=== PATIENT | female | born 1990 | race African-American/Black ===

== ENCOUNTER 2017-12-04 01:38 | Emergency (ER) | payer SELFPAY ==
[~2017-12-04] VITALS: Ht 157.5 cm; Wt 47.6 kg
[2017-12-04] MEDS ORDERED: Morphine Sulfate 4mg/ml Inj IVP ONE (02:00)
[2017-12-04] MEDS ORDERED: Ipratropium 0.02% Inh Soln 2.5ml UD HHN ONE (02:00)
[2017-12-04] MEDS ORDERED: NS 1000ml 1,400 ML IVLG ONE (02:00)
[2017-12-04] MEDS ORDERED: Albuterol ud Inhalation HHN ONE (02:00)
--- NOTE | 2017-12-04 02:01 | Emergency Room Report ---
History of Present Illness General Chief Complaint: Flu Like Symptoms Source: Patient Present Illness HPI Patient presents with coughing congestion and fever. Onset for 2 weeks now. Getting worse. Coughing to the point she started up. Tonight she noticed some specks of blood in it. Also with fever chills in the last few days. Coughing is productive of yellow phlegm. No abdominal pain. No diarrhea. No sick contact. Still able to smoke but much less. Allergies: Coded Allergies: No Known Allergies (Unverified , 12/04/17) Patient History Past Medical History: see triage record, old chart reviewed Past Surgical History: none Pertinent Family History: none Social History: Reports: smoking Last Menstrual Period: 11/28/2017 Now: No Immunizations: other Reviewed Nursing Documentation: PMH: Agreed; PSxH: Agreed Nursing Documentation-PMH Past Medical History: No History, Except For Hx Asthma: Yes - childhood asthma Review of Systems Constitutional: Reports: fever, weakness Eye: Denies: eye pain, blurred vision ENT: Denies: ear pain, nose congestion, throat swelling Respiratory: Reports: cough, shortness of breath, sputum Cardiovascular: Denies: chest pain, palpitations Gastrointestinal: Denies: abdominal pain, diarrhea, nausea, vomiting Musculoskeletal: Denies: back pain, joint pain Skin: Denies: rash Neurological: Denies: headache, numbness Endocrine: Denies: increased thirst, increased urine Hematologic/Lymphatic: Denies: easy bruising All Other Systems: negative except mentioned in HPI Physical Exam Vital Signs Date Time Temp Pulse Resp B/P (MAP) Pulse Ox O2 Delivery O2 Flow Rate FiO2 12/04/17 01:41 100.0 106 21 103/58 96 Room Air 100.0 vitals with fever Sp02 EP Interpretation: reviewed, normal General Appearance: well appearing, no apparent distress, alert Head: normocephalic, atraumatic Eyes: bilateral eye PERRL, bilateral eye EOMI ENT: hearing grossly normal, normal pharynx Neck: full range of motion, supple, no meningismus Respiratory: chest non-tender, normal breath sounds, other - and coughing fits with inspiration Cardiovascular #1: regular rate, rhythm, no murmur Gastrointestinal: normal bowel sounds, non tender, no mass, no organomegaly, no bruit, non-distended Musculoskeletal: back normal, gait/station normal, normal range of motion Psychiatric: mood/affect normal Skin: warm/dry Medical Decision Making Diagnostic Impression: Primary Impression: Influenza-like symptoms Additional Impressions: Asthma exacerbation Qualified Codes: J45.901 - Unspecified asthma with (acute) exacerbation SIRS (systemic inflammatory response syndrome) Atypical pneumonia ER Course Patient presents with influenza-like illness with coughing and bronchospasm. Coughing resolved with nebulizer treatment. Steroids given here. She does have a lactic acidosis. I suspect this is from his systemic inflammatory response syndrome. Her symptoms of ongoing for 2 weeks. Therefore I will go ahead and place on antibiotics for possible atypical pneumonia. No evidence of ACS, PE, dissection to name a few. Since patient felt much better, she wants to go home. We'll discharge home. Lab Results Impression labs with elevated lactic acid Rhythm Strip Diag. Results Rhythm Strip Time: 05:17 EP Interpretation: yes Rate: 110 Rhythm: NSR, no PVC's, no ectopy Last Vital Signs Date Time Temp Pulse Resp B/P (MAP) Pulse Ox O2 Delivery O2 Flow Rate FiO2 12/04/17 01:41 100.0 106 21 103/58 96 Room Air 100.0 Status: improved Disposition: HOME, SELF-CARE Condition: Stable Scripts Azithromycin* (ZITHROMAX*) 250 Mg Tablet 250 MG ORAL DAILY, #6 TAB 0 Refills Take two tables once daily for 1 day, then one tablet once daily for 4 days. Prov: ANNA ORNELAS M.D. 12/04/17 Prednisone* (PREDNISONE*) 20 Mg Tablet 60 MG ORAL DAILY, #15 TAB Prov: ANNA ORNELAS M.D. 12/04/17 Albuterol Sulfate* (ALBUTEROL SULFATE MDI*) 8.5 Gm Hfa.aer.ad 2 PUFF INH Q4H PRN for cough/wheezing, #1 EA 0 Refills Prov: ANNA ORNELAS M.D. 12/04/17 Referrals: NOT CHOSEN IPA/,REFERRING (PCP) Additional Instructions: Follow up with your DrAnthony in 2-3 days. Return if symptom worsen. ANNA ORNELAS M.D. Dec 04, 2017 02:01
[2017-12-04 02:35] LABS: ANION GAP 12 mmol/L (5-15); BLOOD UREA NITROGEN 10 mg/dL (7-18); CALCIUM 9.3 MG/DL (8.5-10.1); CARBON DIOXIDE 26 MMOL/L (21-32); CHLORIDE 103 MMOL/L (98-107); CREATININE 0.9 MG/DL (0.55-1.30); POTASSIUM 3.7 MMOL/L (3.5-5.1); SODIUM 140 MMOL/L (136-145)
[2017-12-04 02:39] LABS: ALANINE AMINOTRANSFERASE 23 U/L (12-78); ALBUMIN 4.5 G/DL (3.4-5.0); ALBUMIN/GLOBULIN RATIO 1.1 (1.0-2.7); ALKALINE PHOSPHATASE 51 U/L (46-116); ASPARTATE AMINO TRANSFERASE 19 U/L (15-37); BILIRUBIN,TOTAL 0.3 MG/DL (0.2-1.0)
[2017-12-04 02:40] LABS: BASOPHILS % (AUTO) 0.9 % (0.0-2.0); EOSINOPHILS % (AUTO) 0.5 % (0.0-3.0); HEMOGLOBIN 9.8 G/DL (12.0-16.0); LYMPHOCYTES % (AUTO) 11.4 % (20.0-45.0); MEAN CORPUSCULAR VOLUME 68 FL (80-99); MONOCYTES % (AUTO) 8.4 % (1.0-10.0); NEUTROPHILS % (AUTO) 78.9 % (45.0-75.0); PLATELET COUNT 353 K/UL (150-450); RED BLOOD COUNT 4.72 M/UL (4.20-5.40); RED CELL DISTRIBUTION WIDTH 14.6 % (11.6-14.8); WHITE BLOOD COUNT 10.8 K/UL (4.8-10.8)
[2017-12-04 02:45] LABS: APPEARANCE,URINE CLEAR; BILIRUBIN, URINE NEGATIVE (NEGATIVE); COLOR,URINE PALE YELLOW; GLUCOSE, URINE (UA) NEGATIVE (NEGATIVE); KETONES,URINE NEGATIVE (NEGATIVE); LEUKOCYTE ESTERASE ,URINE 1+ (NEGATIVE); NITRITE,URINE NEGATIVE (NEGATIVE); PH,URINE 6 (4.5-8.0); PROTEIN,URINE NEGATIVE (NEGATIVE); UROBILINOGEN,URINE 1 MG/DL (0.0-1.0)
[2017-12-04] MEDS ORDERED: Isovue-370 150ml vial INJ PRN (03:00)
[2017-12-04] MEDS ORDERED: Solu-MEDROL 125mg Inj IVP ONE (03:00)
[2017-12-04] MEDS ORDERED: Acetaminophen 500mg (ES) tab ORAL ONE (05:15)
[2017-12-04] MEDS ORDERED: cefTRIAXone 1 GM in NS 55 ML IVPB ONE (05:15)
[2017-12-04] MEDS ORDERED: PREDNISONE20 MG ORAL (05:18)
[2017-12-04] MEDS ORDERED: ZITHROMAX250 MG ORAL (05:18)
[2017-12-04] MEDS ORDERED: ALBUTEROL SULF8.5 GM INH (05:18)
[2017-12-04 06:54] VITALS: BP 122/89
--- NOTE | 2017-12-04 08:51 | Diagnostic Imaging Report ---
ndication: Shortness of breath Technique: IV administration nonionic contrast. Spiral acquisitions obtained from the lung bases to the lung apices. Multiplanar and 3-D reconstructions were generated. Total dose length product 504.18 mGycm. CTDIvol(s) 16.23 mGy. Dose reduction achieved using automated exposure control Comparison: none Findings: No intraluminal filling defects to suggest acute pulmonary embolus demonstrated. No pulmonary artery dilatation or right ventricular dilatation demonstrated. No evidence of thoracic aortic aneurysm or dissection. The lungs are clear. No infiltrates, effusions, masses, or nodules are demonstrated. The heart size is normal. No pericardial effusion. No mediastinal or hilar mass or adenopathy. The included portions of the thyroid are unremarkable. No axillary or chest wall mass or adenopathy demonstrated. The included upper abdominal anatomy is unremarkable Impression: Negative This agrees with the preliminary interpretation provided overnight by [facility] teleradiology service. The CT scanner at [facility] is accredited by the [employer] and the scans are performed using protocols designed to limit radiation exposure to as low as reasonably achievable to attain images of sufficient resolution adequate for diagnostic evaluation.
--- NOTE | 2017-12-04 10:57 | Diagnostic Imaging Report ---
Indication: Shortness of breath Technique: One view of the chest Comparison: none Findings: Lungs and pleural spaces are clear. Heart size is normal Impression: No acute process
== END 2017-12-04 07:05 | disposition home or self-care (01) ==
LOC: EMR 01:56
DX: J18.9 Pneumonia, unspecified organism (principal); J45.901 Unspecified asthma with (acute) exacerbation; R65.10 Systemic inflammatory response syndrome (SIRS) of non-infectious origin without acute organ dysfunction; F17.200 Nicotine dependence, unspecified, uncomplicated
CPT/HCPCS: 36415; 71045; 71275; 80053; 81003; 81025; 83605; 85025; 85379; 87040; 94640; 96374; 96375; 99284; J0696; J2270; J2405; J2930; Q9967

== ENCOUNTER 2019-08-05 19:29 | Emergency (ER) | payer OTHER ==
[~2019-08-05] VITALS: Ht 157.5 cm; Wt 47.6 kg
[~2019-08-05 19:29] MED LIST: ALBUTEROL SULF8.5 GM INH; PREDNISONE20 MG ORAL; VIBRAMYCIN100 MG ORAL; ZITHROMAX250 MG ORAL
[2019-08-05 19:35] VITALS: BP 102/61
--- NOTE | 2019-08-05 19:35 | NUR ---
ED Nurse Note: Pt walked into ED for c/o generalized body pain and n/v onset four days ago. Pt is aaox4, no cardiac or respiratory distress noted.
[2019-08-05] MEDS: Albuterol/Ipratropium 3ml neb HHN SCH ×3 (19:54→20:05)
[2019-08-05 20:28] LABS: APPEARANCE,URINE SLIGHTLY CLOUDY; BILIRUBIN, URINE NEGATIVE (NEGATIVE); GLUCOSE, URINE (UA) NEGATIVE (NEGATIVE); KETONES,URINE 2+ (NEGATIVE); LEUKOCYTE ESTERASE ,URINE 1+ (NEGATIVE); NITRITE,URINE NEGATIVE (NEGATIVE); PH,URINE 5 (4.5-8.0); PROTEIN,URINE 2+ (NEGATIVE); UROBILINOGEN,URINE 4 MG/DL (0.0-1.0)
[2019-08-05 20:31] LABS: BASOPHILS % (AUTO) 1.4 % (0.0-2.0); COLOR,URINE YELLOW; EOSINOPHILS % (AUTO) 0.4 % (0.0-3.0); HEMATOCRIT 38.2 % (37.0-47.0); HEMOGLOBIN 12.2 G/DL (12.0-16.0); LYMPHOCYTES % (AUTO) 31.1 % (20.0-45.0); MEAN CORPUSCULAR VOLUME 85 FL (80-99); MONOCYTES % (AUTO) 9.6 % (1.0-10.0); NEUTROPHILS % (AUTO) 57.5 % (45.0-75.0); PLATELET COUNT 178 K/UL (150-450); RED BLOOD COUNT 4.52 M/UL (4.20-5.40); RED CELL DISTRIBUTION WIDTH 14.4 % (11.6-14.8); WHITE BLOOD COUNT 4.2 K/UL (4.8-10.8)
[2019-08-05 20:43] LABS: ANION GAP 10 mmol/L (5-15); BLOOD UREA NITROGEN 13 mg/dL (7-18); CALCIUM 8.6 MG/DL (8.5-10.1); CARBON DIOXIDE 28 MMOL/L (21-32); CHLORIDE 103 MMOL/L (98-107); CREATININE 0.8 MG/DL (0.55-1.30); POTASSIUM 4.4 MMOL/L (3.5-5.1); SODIUM 141 MMOL/L (136-145)
[2019-08-05 20:48] LABS: ALANINE AMINOTRANSFERASE 10 U/L (12-78); ALBUMIN 3.8 G/DL (3.4-5.0); ALBUMIN/GLOBULIN RATIO 1.1 (1.0-2.7); ALKALINE PHOSPHATASE 32 U/L (46-116); ASPARTATE AMINO TRANSFERASE 27 U/L (15-37); BILIRUBIN,TOTAL 0.5 MG/DL (0.2-1.0)
--- NOTE | 2019-08-05 20:59 | Emergency Room Report ---
History of Present Illness General Chief Complaint: Flu Like Symptoms Source: Patient Present Illness HPI 28-year-old female with no significant past medical history who smokes cigarettes on daily basis as well as occasional use of marijuana here complaining of 4 days of generalized body ache, and 2 days of few bouts of nonbloody emesis, and nonbloody diarrhea. Denies chest pain palpitation however complains of 2 days of cough and congestion reports that she has history of asthma and ran out of her inhaler. Reports that she has not smoked any cigarettes nor use any marijuana in the past few days. Denies any recent travel, urinary frequency and urgency, . Patient was last seen at [facility] and was diagnosed with PID. Denies any vaginal discharge. Denies having any new sexual partner. Allergies: Coded Allergies: No Known Allergies (Unverified , 12/04/17) Patient History Past Medical History: see triage record Past Surgical History: none Pertinent Family History: none Social History: Reports: smoking, drug use - marijuana Last Menstrual Period: n/a Now: No Immunizations: UTD Reviewed Nursing Documentation: PMH: Agreed; PSxH: Agreed Nursing Documentation-PMH Past Medical History: No History, Except For Hx Cardiac Problems: No Hx Asthma: Yes Hx Neurological Problems: No Review of Systems All Other Systems: negative except mentioned in HPI Physical Exam Vital Signs Date Time Temp Pulse Resp B/P (MAP) Pulse Ox O2 Delivery O2 Flow Rate FiO2 08/05/19 19:31 98.6 95 18 102/61 (75) 93 Room Air 08/05/19 19:59 21 Sp02 EP Interpretation: reviewed, normal General Appearance: no apparent distress, alert, GCS 15, non-toxic Head: normocephalic, atraumatic Eyes: bilateral eye normal inspection, bilateral eye PERRL ENT: hearing grossly normal, normal pharynx, no angioedema, normal voice Neck: full range of motion, supple, no meningismus, no bony tend, supple/symm/ no masses Respiratory: chest non-tender, lungs clear, normal breath sounds, no rhonchi, no retraction, no accessory muscle use, no wheezing, speaking full sentences Cardiovascular #1: regular rate, rhythm, no edema, no murmur, normal capillary refill Gastrointestinal: non tender, soft, no mass, no organomegaly, no peritonitis, no bruit, non-distended, no guarding, no hernia Rectal: deferred Genitourinary: no CVA tenderness Musculoskeletal: back normal, digits/nails normal, no calf tenderness Neurologic: alert, motor strength/tone normal, oriented x3, sensory intact, responsive, speech normal Psychiatric: judgement/insight normal, memory normal, mood/affect normal, no suicidal/homicidal ideation Skin: no rash, palpation normal, normal color Lymphatic: no adenopathy Medical Decision Making PA Attestation All my diagnosis and treatment plans were reviewed ad discussed with my supervising physician Dr. Hallman Diagnostic Impression: Primary Impression: URI (upper respiratory infection) Additional Impressions: UTI (urinary tract infection) Nausea & vomiting ER Course 28-year-old female with no significant past medical history who smokes cigarettes on daily basis as well as occasional use of marijuana here complaining of 4 days of generalized body ache, and 2 days of few bouts of nonbloody emesis, and nonbloody diarrhea. Denies chest pain palpitation however complains of 2 days of cough and congestion reports that she has history of asthma and ran out of her inhaler. Reports that she has not smoked any cigarettes nor use any marijuana in the past few days. Denies any recent travel, urinary frequency and urgency, . Patient was last seen at [facility] and was diagnosed with PID. Denies any vaginal discharge. Denies having any new sexual partner. Ddx considered but are not limited to: strep pharyngitis, URI, tonsillitis, peritonsillar abscess, influenza Vital signs: are WNL, pt. is afebrile H&PE are most consistent with: URI, incidental finding of UTI, nausea vomiting most likely secondary to flulike symptoms however too late to start Tamiflu ORDERS: CBC, CMP, UA, urine test, tox screen, chest x-ray, albuterol, guaifenesin, Zofran, dicyclomine, Macrobid ED INTERVENTIONS: NS bolus, Zofran, Pepcid, 3 treatments of albuterol ipratropium nebulizer per patient request DISCHARGE: At this time pt. is stable for d/c to home. Will provide printed patient care instructions, and any necessary prescriptions. Care plan and follow up instructions have been discussed with the patient prior to discharge. Patient take medication as directed, follow-up with her primary care provider , avoid smoking, increase oral hydration, at this time I do not find the need to further test for possible PID as patient is asymptomatic and does not have any abdominal pain as well as normal white count. If worsening symptoms return to the emergency room. Advised patient to keep a brat diet and increase oral hydration especially electrolyte water. Chest X-Ray Diagnostic Results Chest X-Ray Diagnostic Results : Chest X-Ray Ordered: Yes # of Views/Limited/Complete: 1 View Indication: Shortness of Breath EP Interpretation: Yes PA Xray: Interpretation reviewed, by supervising MD, and agrees with findings. Interpretation: no consolidation, no effusion, no pneumothorax Impression: No acute disease Electronically Signed by: Orville Scales PA-C Last Vital Signs Date Time Temp Pulse Resp B/P (MAP) Pulse Ox O2 Delivery O2 Flow Rate FiO2 08/05/19 20:03 81 18 100 Room Air 21 78 18 100 08/05/19 19:31 98.6 102/61 (75) Disposition: HOME, SELF-CARE Condition: Stable Scripts Albuterol Sulfate (VENTOLIN HFA) 18 Gm Hfa.aer.ad 2 PUFFS INH EVERY 6 HOURS, #18 GM 0 Refills Prov: LoydamogtammymiCharissaal PA 08/05/19 Guaifenesin* (GUAIFENESIN*) 100 Mg/5 Ml Liquid 5 ML ORAL Q6H, #120 ML 0 Refills Prov: LoydamogkatlynNahal PA 08/05/19 Dicyclomine Hcl* (DICYCLOMINE HCL*) 10 Mg Capsule 10 MG ORAL TID, #10 CAP Prov: Charissa Gilbertal PA 08/05/19 Ondansetron (Zofran) 4 Mg Tablet 4 MG ORAL Q6H PRN for Nausea & Vomiting, #14 TAB Prov: LoydamogCharissa pottsal PA 08/05/19 Nitrofurantoin Monohyd/M-Cryst* (MACROBID 100 MG*) 100 Mg Capsule 100 MG ORAL EVERY 12 HOURS for 7 Days, #14 CAP Prov: LoydamoghaelenaNahal PA 08/05/19 Referrals: NON PHYSICIAN (PCP) Patient Instructions: Nausea and Vomiting, Adult, [id number], Upper Respiratory Infection, Adult, [id number], Urinary Tract Infection, Easy-to- Read Additional Instructions: Take medication as directed, follow-up with primary care provider, increase oral hydration, keep a brat diet, if worsening symptoms return to the emergency room Orville Gilbert Aug 05, 2019 20:59
[2019-08-05] MEDS ORDERED: NITROFURANTOIN100 M2 ORAL (21:00)
[2019-08-05] MEDS ORDERED: ZOFRAN4 M1 ORAL (21:00)
[2019-08-05] MEDS ORDERED: VENTOLIN HFA18 GM INH (21:01)
[2019-08-05] MEDS ORDERED: DICYCLOMINE HCL10 MG ORAL (21:01)
[2019-08-05] MEDS ORDERED: GUAIFENESI100 MG/5 M ORAL (21:01)
[2019-08-05 21:30] VITALS: BP 105/65
--- NOTE | 2019-08-05 21:30 | NUR ---
ER DISCHARGE NOTE: Patient is cleared to be discharged per ERMD, pt is aox4, on room air, with stable vital signs. pt was given dc and prescription instructions, pt was able to verbalize understanding, pt id band removed. pt is able to ambulate with steady gait. pt took all belongings.
--- NOTE | 2019-08-06 13:52 | Diagnostic Imaging Report ---
Indication: Dyspnea Comparison: 12/04/2017 A single view chest radiograph was obtained. Findings: Cardiomediastinal appearance is within normal limits for age. The lungs are clear. Pulmonary vascularity is appropriate. The diaphragmatic contour is smooth and costophrenic angles are sharp. No pleural effusions are identified. The bones are unremarkable. Impression: No acute findings
== END 2019-08-05 21:30 | disposition home or self-care (01) ==
LOC: EMR 20:48
DX: J06.9 Acute upper respiratory infection, unspecified (principal); R11.2 Nausea with vomiting, unspecified; N39.0 Urinary tract infection, site not specified; F17.200 Nicotine dependence, unspecified, uncomplicated
CPT/HCPCS: 36415; 71045; 80053; 81001; 81025; 85025; 87086; 99284; J7620

== ENCOUNTER 2019-11-20 13:06 | Emergency (ER) | payer OTHER ==
[~2019-11-20] VITALS: Ht 157.5 cm; Wt 47.6 kg
[~2019-11-20 13:06] MED LIST changes: +DICYCLOMINE HCL10 MG ORAL; +GUAIFENESI100 MG/5 M ORAL; +NITROFURANTOIN100 M2 ORAL; +VENTOLIN HFA18 GM INH; +ZOFRAN4 M1 ORAL
[2019-11-20 13:14] VITALS: BP 106/66
--- NOTE | 2019-11-20 14:18 | Emergency Room Report ---
History of Present Illness General Chief Complaint: Headache Source: Patient Present Illness HPI Disclaimer: Please note that this report is being documented using [employer] technology. This can lead to erroneous entry secondary to incorrect interpretation by the dictating instrument. HPI: 29-year-old female presents for evaluation of headache and dysuria. Over the past week she has had intermittent headache, shoulder cramping, neck stiffness. She reports bitemporal throbbing headache that are sometimes 10/10 intensity. Denies loss conscious, seizure, fever. 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 She is also complaining of some dysuria. She took a Monistat aopw-mbk-qcqboia treatment for yeast infection last week. Has been taking 1 tablet of Tylenol per day without significant improvement or symptoms. Denies vomiting. 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 EOMI. PERRLA. No nystagmus. Cardiovascular: RRR. S1 and S2 normal. No murmur appreciated Resp: Normal work of breathing. No cough, wheezing or crackles appreciated Abdomen: Abdomen is soft, nondistended. Nontender Skin: Intact. No abrasions, laceration or rash over the exposed skin MSK: Normal tone and bulk. Moving all extremities. No obvious deformity. Paraspinal tenderness to palpation of the cervical region extending over through the distribution of the trapezius muscle. Full range of motion of the shoulders bilaterally. Neuro: Awake and alert. Mentating appropriately. Medical Decision Making ER Course Is a 29-year-old female presenting for evaluation of headache, shoulder and neck stiffness and dysuria. Differential includes without limited to generalized headache, migraine headache, tension headache, cluster headache, cervical strain, cervical spasm, back spasms, UTI, yeast infection to name a few. Patient is overall well-appearing stable vital signs. She is very anxious and emotional stating that she cannot do her job due to these persistent headaches. She has not taken a subtherapeutic dose of analgesias. Will provide IV fluids, migraine cocktail. Laboratory Tests Test 11/20/19 13:40 11/20/19 15:20 White Blood Count 7.2 K/UL (4.8-10.8) Red Blood Count 4.73 M/UL (4.20-5.40) Hemoglobin 12.9 G/DL (12.0-16.0) Hematocrit 36.7 % (37.0-47.0) L Mean Corpuscular Volume 78 FL (80-99) L Mean Corpuscular Hemoglobin 27.3 PG (27.0-31.0) Mean Corpuscular Hemoglobin Concent 35.2 G/DL (32.0-36.0) Red Cell Distribution Width 12.1 % (11.6-14.8) Platelet Count 278 K/UL (150-450) Mean Platelet Volume 5.4 FL (6.5-10.1) L Neutrophils (%) (Auto) 63.6 % (45.0-75.0) Lymphocytes (%) (Auto) 29.8 % (20.0-45.0) Monocytes (%) (Auto) 4.1 % (1.0-10.0) Eosinophils (%) (Auto) 1.8 % (0.0-3.0) Basophils (%) (Auto) 0.7 % (0.0-2.0) Sodium Level 144 MMOL/L (136-145) Potassium Level 4.2 MMOL/L (3.5-5.1) Chloride Level 107 MMOL/L (98-107) Carbon Dioxide Level 29 MMOL/L (21-32) Anion Gap 8 mmol/L (5-15) Blood Urea Nitrogen 7 mg/dL (7-18) Creatinine 0.8 MG/DL (0.55-1.30) Estimated Glomerular Filtration Rate > 60 mL/min (>60) Glucose Level 86 MG/DL (74-106) Calcium Level 8.9 MG/DL (8.5-10.1) Magnesium Level 2.0 MG/DL (1.8-2.4) Total Bilirubin 0.4 MG/DL (0.2-1.0) Aspartate Amino Transferase (AST) 14 U/L (15-37) L Alanine Aminotransferase (ALT) 17 U/L (12-78) Alkaline Phosphatase 37 U/L (46-116) L Total Protein 7.3 G/DL (6.4-8.2) Albumin 3.9 G/DL (3.4-5.0) Globulin 3.4 g/dL Albumin/Globulin Ratio 1.1 (1.0-2.7) Urine Color Pale yellow Urine Appearance Slightly cloudy Urine pH 7 (4.5-8.0) Urine Specific Orwell 1.010 (1.005-1.035) Urine Protein Negative (NEGATIVE) Urine Glucose (UA) Negative (NEGATIVE) Urine Ketones Negative (NEGATIVE) Urine Blood 4+ (NEGATIVE) H Urine Nitrite Negative (NEGATIVE) Urine Bilirubin Negative (NEGATIVE) Urine Urobilinogen Normal MG/DL (0.0-1.0) Urine Leukocyte Esterase 1+ (NEGATIVE) H Urine RBC 2-4 /HPF (0 - 2) H Urine WBC 2-4 /HPF (0 - 2) Urine Squamous Epithelial Cells Many /LPF (NONE/OCC) H Urine Bacteria Few /HPF (NONE) Urine HCG, Qualitative Negative (NEGATIVE) Urine Opiates Screen Negative (NEGATIVE) Urine Barbiturates Screen Negative (NEGATIVE) Phencyclidine (PCP) Screen Negative (NEGATIVE) Urine Amphetamines Screen Negative (NEGATIVE) Urine Benzodiazepines Screen Negative (NEGATIVE) Urine Cocaine Screen Negative (NEGATIVE) Urine Marijuana (THC) Screen Negative (NEGATIVE) Reevaluation Time: 15:53 Last Vital Signs Date Time Temp Pulse Resp B/P (MAP) Pulse Ox O2 Delivery O2 Flow Rate FiO2 11/20/19 13:14 98.4 98 19 106/66 95 Room Air Reevaluation Impression Labs have returned within normal limits. Patient feeling better after receiving IV fluids and migraine cocktail. Stable for outpatient follow-up. Will treat symptomatically for cervical spasm and tension headaches. Discussed proper dosing of Tylenol and Motrin. Instructed to return to the emergency department any new or worsening symptoms. Disposition: HOME, SELF-CARE Condition: Stable Scripts Methocarbamol* (ROBAXIN-750*) 750 Mg Tablet 750 MG PO TID, #21 TAB 0 Refills Prov: Salty Gomez MD 11/20/19 Lidocaine Patch* (Lidoderm Patch*) 1 Each Adh..patch 1 PATCH TOPIC DAILY, #30 PATCH Patch(es) may remain in place for up to 12 hours in any 24-hour period. Prov: Salty Gomez MD 11/20/19 Acetaminophen* (TYLENOL EXTRA STRENGTH*) 500 Mg Tablet 500 MG ORAL Q8H PRN for Prn Headache/Temp > 101, #30 TAB 0 Refills Prov: Salty Gomez MD 11/20/19 Ibuprofen* (MOTRIN*) 600 Mg Tablet 600 MG ORAL Q6H PRN for For Pain, #30 TAB 0 Refills Prov: Salty Gomez MD 11/20/19 Salty Gomez MD November 20, 2019 14:18
[2019-11-20] MEDS ORDERED: Metoclopramide 10mg/2ml Inj IVP ONE (14:30)
[2019-11-20] MEDS ORDERED: DiphenhydrAMINE 50mg/ml Inj IVP ONE (14:30)
[2019-11-20] MEDS ORDERED: Ketorolac 30mg Inj IV ONE (14:30)
[2019-11-20 14:51] LABS: BASOPHILS % (AUTO) 0.7 % (0.0-2.0); EOSINOPHILS % (AUTO) 1.8 % (0.0-3.0); HEMATOCRIT 36.7 % (37.0-47.0); HEMOGLOBIN 12.9 G/DL (12.0-16.0); LYMPHOCYTES % (AUTO) 29.8 % (20.0-45.0); MEAN CORPUSCULAR VOLUME 78 FL (80-99); MONOCYTES % (AUTO) 4.1 % (1.0-10.0); NEUTROPHILS % (AUTO) 63.6 % (45.0-75.0); PLATELET COUNT 278 K/UL (150-450); RED BLOOD COUNT 4.73 M/UL (4.20-5.40); RED CELL DISTRIBUTION WIDTH 12.1 % (11.6-14.8); WHITE BLOOD COUNT 7.2 K/UL (4.8-10.8)
[2019-11-20 15:03] LABS: ANION GAP 8 mmol/L (5-15); BLOOD UREA NITROGEN 7 mg/dL (7-18); CALCIUM 8.9 MG/DL (8.5-10.1); CARBON DIOXIDE 29 MMOL/L (21-32); CHLORIDE 107 MMOL/L (98-107); CREATININE 0.8 MG/DL (0.55-1.30); POTASSIUM 4.2 MMOL/L (3.5-5.1); SODIUM 144 MMOL/L (136-145)
[2019-11-20 15:08] LABS: ALANINE AMINOTRANSFERASE 17 U/L (12-78); ALBUMIN 3.9 G/DL (3.4-5.0); ALBUMIN/GLOBULIN RATIO 1.1 (1.0-2.7); ALKALINE PHOSPHATASE 37 U/L (46-116); ASPARTATE AMINO TRANSFERASE 14 U/L (15-37); BILIRUBIN,TOTAL 0.4 MG/DL (0.2-1.0)
[2019-11-20] MEDS ORDERED: IBUPROFEN600 M1 ORAL (15:09)
[2019-11-20] MEDS ORDERED: TYLENOL EXTRA500 MG ORAL (15:09)
[2019-11-20 15:33] LABS: APPEARANCE,URINE SLIGHTLY CLOUDY; BILIRUBIN, URINE NEGATIVE (NEGATIVE); COLOR,URINE PALE YELLOW; GLUCOSE, URINE (UA) NEGATIVE (NEGATIVE); KETONES,URINE NEGATIVE (NEGATIVE); LEUKOCYTE ESTERASE ,URINE 1+ (NEGATIVE); NITRITE,URINE NEGATIVE (NEGATIVE); PH,URINE 7 (4.5-8.0); PROTEIN,URINE NEGATIVE (NEGATIVE); UROBILINOGEN,URINE NORMAL MG/DL (0.0-1.0)
[2019-11-20 16:17] VITALS: BP 122/74
[2019-11-20] MEDS ORDERED: LIDODERM700 M1 TOPIC (16:18)
[2019-11-20] MEDS ORDERED: ROBAXIN-750750 MG PO (16:19)
== END 2019-11-20 16:17 | disposition home or self-care (01) ==
LOC: EMR 14:08
DX: M62.838 Other muscle spasm (principal); G44.209 Tension-type headache, unspecified, not intractable; J45.909 Unspecified asthma, uncomplicated
CPT/HCPCS: 36415; 80053; 80307; 81003; 81025; 83735; 85025; 96361; 96374; 96375; 99284; J1200; J1885; J2765; J7030